=== PATIENT | female | born 1975 | race Caucasian/White ===

== ENCOUNTER → 2016-11-11 | Outpatient (CLI) | payer OTHER ==
[~2016-11-11] MED LIST: PRENTAB26 PO
== END | disposition home or self-care (01) ==
LOC: C.LABSPEC 17:21
PROVIDERS: ATTEND Nurse Practitioner Adult Health
DX: R35.0 Frequency of micturition (principal)

== ENCOUNTER 2017-01-01 10:42 | Emergency (ER) | payer OTHER ==
[~2017-01-01] VITALS: Ht 167.6 cm; Wt 76.3 kg
[2017-01-01 10:55] VITALS: TEMP 36.8; Ht 167.6 cm; Wt 76.3 kg
[2017-01-01 12:29] LABS: BASO % 0.7 %; BASO ABS # 0.04 K/uL (0-0.2); COMPLETE YES; EOS % 1.2 %; HEMATOCRIT 38.5 % (37-47); IG% 0.2 %; LYMPH % 19.8 %; LYMPH ABS # 1.15 K/uL (1.2-3.4); MEAN CELL VOLUME 87.1 fL (80-100); MEAN CORPUSCULAR HEMOGLOBIN 31.2 pg (25-34); MEAN CORPUSCULAR HGB CONC 35.8 g/dl (32-36); MEAN PLATELET VOLUME 9.9 fL (7.4-10.4); MONO % 6.7 %; NEUT % 71.4 %; PLATELET COUNT 236 K/uL (130-400); RED BLOOD COUNT 4.42 M/uL (4.2-5.4); WHITE BLOOD COUNT 5.82 K/uL (4.8-10.8)
[2017-01-01 12:38] LABS: URINE APPEARANCE CLEAR (CLEAR); URINE BILIRUBIN NEG (NEG); URINE COLOR YELLOW; URINE NITRITE NEG (NEG); URINE SPECIFIC GRAVITY 1.009 (1.000-1.030); UROBILINOGEN NEG (NEG); ZZUR CULT IF INDIC CLEAN CATCH NO
[2017-01-01 12:42] LABS: MANUAL MICROSCOPIC REQUIRED? NO; REVIEW REQ? NO
[2017-01-01 12:45] LABS: BUN/CREATININE RATIO 12.5 (10-20); CALCIUM 9.4 mg/dl (8.5-10.1); CREATININE 0.83 mg/dl (0.60-1.20); MAGNESIUM 2.2 mg/dl (1.8-2.4); POTASSIUM 3.7 mmol/L (3.5-5.1)
--- NOTE | 2017-01-01 12:53 | EMERGENCY ROOM VISIT NOTE ---
History Report prepared by Harjinderibsaravanan: Epi Saravia Under the Supervision of: Dr. Angel Tse M.D. First contact with patient: 11:06 Chief Complaint: DIZZY Stated Complaint: LIGHT HEADED, NAUSEA, ARMS FEEL NUMB, CHEST FEELS History of Present Illness The patient is a 41 year old white female who presents to the ED with a cc of an episode of lightheadedness occurring two hours ago. Positive "tunnel vision" visual changes, nausea, diarrhea and bilateral arm numbness. Negative LOC, chest pain, SOB, fevers, chills, or cough. Was shopping when her symptoms began. Her symptoms worsened while present before resolving. Notes that she gave blood during a routine physical this morning. Was required to fast for the blood draw. No known medication allergies. Arm numbness has persisted. No personal history of blood clots. Was previously on control, but no longer takes it. LMNP was four weeks ago. Stressed lately, but not significantly more so than usual. History of one previous panic attack, but states that her current symptoms feel different. Source of History: patient Onset: Two hours ago Quality: other (lightheadedness) Timing: other (episode) Associated Symptoms: + nausea, + diarrhea, + numbness (bilateral arm), No LOC, No fevers, No chills, No cough, No chest pain, No SOB Note: Positive: "tunnel vision" visual changes. Review of Systems See HPI for pertinent positives and negatives. A total of ten systems were reviewed and were otherwise negative. Past Medical & Surgical Medical Problems: (1) No Known Active Medical Problems Family History No pertinent family history stated. Social History Smoking Status: Never Smoker Smokeless Tobacco Use: No Alcohol Use: occasionally Drug Use: none Current/Historical Medications No Active Prescriptions or Reported Meds Allergies Coded Allergies: No Known Allergies (Verified Allergy, Unknown, 04/30/08) Physical Exam Vital Signs Date Time Temp Pulse Resp B/P (MAP) Pulse Ox O2 Delivery O2 Flow Rate FiO2 01/01/17 13:12 78 16 143/92 94 01/01/17 12:30 71 21 117/77 98 Room Air 01/01/17 12:00 74 16 122/83 97 Room Air 01/01/17 11:30 95 21 140/106 99 Room Air 01/01/17 11:16 91 01/01/17 11:05 111 16 132/88 100 Room Air 01/01/17 10:55 36.8 102 18 142/90 99 Room Air Physical Exam GENERAL: Awake, alert, well-appearing, NAD. Tearful, anxious. HENT: Normocephalic, atraumatic. EYES: Normal conjunctiva. Sclera non-icteric. NECK: Supple. No nuchal rigidity. FROM. RESPIRATORY: CTAB, no rhonchi, wheezing, crackles CARDIAC: RRR, no MRG ABDOMEN: Soft, NTND, BS+ MSK: No chest wall TTP, no LE edema NEURO: GCS 15, CN 2-12 intact, moves all 4s on command. No sensory deficit. SKIN: No rash or jaundice noted. Medical Decision & Procedures Laboratory Results 01/01/17 11:50 Red Blood Count 4.42, Mean Corpuscular Volume 87.1, Mean Corpuscular Hemoglobin 31.2, Mean Corpuscular Hemoglobin Concent 35.8, Mean Platelet Volume 9.9, Neutrophils (%) (Auto) 71.4, Lymphocytes (%) (Auto) 19.8, Monocytes (%) (Auto) 6.7, Eosinophils (%) (Auto) 1.2, Basophils (%) (Auto) 0.7, Neutrophils # (Auto) 4.16, Lymphocytes # (Auto) 1.15, Monocytes # (Auto) 0.39, Eosinophils # (Auto) 0.07, Basophils # (Auto) 0.04 01/01/17 11:50 Test 01/01/17 11:50 White Blood Count 5.82 K/uL (4.8-10.8) Red Blood Count 4.42 M/uL (4.2-5.4) Hemoglobin 13.8 g/dL (12.0-16.0) Hematocrit 38.5 % (37-47) Mean Corpuscular Volume 87.1 fL (80-100) Mean Corpuscular Hemoglobin 31.2 pg (25-34) Mean Corpuscular Hemoglobin Concent 35.8 g/dl (32-36) Platelet Count 236 K/uL (130-400) Mean Platelet Volume 9.9 fL (7.4-10.4) Neutrophils (%) (Auto) 71.4 % Lymphocytes (%) (Auto) 19.8 % Monocytes (%) (Auto) 6.7 % Eosinophils (%) (Auto) 1.2 % Basophils (%) (Auto) 0.7 % Neutrophils # (Auto) 4.16 K/uL (1.4-6.5) Lymphocytes # (Auto) 1.15 K/uL (1.2-3.4) Monocytes # (Auto) 0.39 K/uL (0.11-0.59) Eosinophils # (Auto) 0.07 K/uL (0-0.5) Basophils # (Auto) 0.04 K/uL (0-0.2) RDW Standard Deviation 40.1 fL (36.4-46.3) RDW Coefficient of Variation 12.6 % (11.5-14.5) Immature Granulocyte % (Auto) 0.2 % Immature Granulocyte # (Auto) 0.01 K/uL (0.00-0.02) Urine Color YELLOW Urine Appearance CLEAR (CLEAR) Urine pH 7.0 (4.5-7.5) Urine Specific [place] 1.009 (1.000-1.030) Urine Protein NEG (NEG) Urine Glucose (UA) NEG (NEG) Urine Ketones NEG (NEG) Urine Occult Blood NEG (NEG) Urine Nitrite NEG (NEG) Urine Bilirubin NEG (NEG) Urine Urobilinogen NEG (NEG) Urine Leukocyte Esterase NEG (NEG) Urine WBC (Auto) 0 /hpf (0-5) Urine RBC (Auto) 0-4 /hpf (0-4) Urine Hyaline Casts (Auto) 0 /lpf (0-5) Urine Epithelial Cells (Auto) 5-10 /lpf (0-5) Urine Bacteria (Auto) NEG (NEG) Urine Test NEG (NEG) Anion Gap 8.0 mmol/L (3-11) Est Creatinine Clear Calc Drug Dose 94.9 ml/min Estimated GFR () 103.0 Estimated GFR (Non- 88.8 BUN/Creatinine Ratio 12.5 (10-20) Calcium Level 9.4 mg/dl (8.5-10.1) Magnesium Level 2.2 mg/dl (1.8-2.4) Laboratory results reviewed by me ECG Indication: other (lightheadedness) Rate (beats per minute): 86 Rhythm: normal sinus Findings: other (Normal axis. Normal intervals. No STS changes. No TWI. ) ED Course 1124: The patient was evaluated in room B6. A complete history and physical exam was performed. 1255: I reevaluated the patient. Discussed results and discharge instructions: she verbalized understanding and agreement. The patient is ready for discharge. Medical Decision The patient is a 41 year old white female who presents to the ED with a cc of an episode of lightheadedness occurring two hours ago. Differential diagnosis: Etiologies such as benign positional vertigo, dehydration, hypovolemia, anemia, tumor, infection, hypoglycemia, electrolyte abnormalities, cardiac sources, intracerebral event, toxicologic, neurologic, as well as others were entertained. Patient was seen and evaluated. Patient did have some tingling in her hands. Patient did not have any history of early cardiac or unexplained in the family. Patient did not have any episodes of syncope during this visit or prior. Patient does not take any blood thinning medications. Patient did have lab work as well as a urine and EKG completed. His blood work fairly unremarkable exception of trace the elevated blood glucose. Patient's UA negative for infection and urine test were negative. Patient tolerated by mouth. Patient feeling improved. Patient was told to follow-up with her PCP in the hydrate as well as avoid any beverages containing alcohol or caffeine. Patient was given strict follow-up discharge, and return precautions. Patient agrees with plan of care and patient was discharged home. Medication Reconcilliation Current Medication List: was personally reviewed by me Blood Pressure Screening Patient's blood pressure: Elevated blood pressure Blood pressure disposition: Elevated BP felt to be situational Impression Primary Impression: Panic attack Additional Impression: Dehydration Scribe Attestation The scribe's documentation has been prepared under my direction and personally reviewed by me in its entirety. I confirm that the note above accurately reflects all work, treatment, procedures, and medical decision making performed by me. Departure Information Dispostion Home / Self-Care Prescriptions No Active Prescriptions or Reported Meds Referrals No Doctor, Assigned (PCP) Patient Instructions Dehydration, ED Panic Attack, My [facility] Additional Instructions Please return to the emergency department if you have worsening or recurrent symptoms not amenable to at-home treatment. Please call for a follow-up appointment with her primary care physician. Please take your medications as prescribed. If you have other concerns and/or complaints please feel free to also call your primary care physician's office or return the ED for further evaluation, management, and treatment. Problem Qualifiers
[2017-01-01 13:12] VITALS: BP 143/92; PULSE 78; O2SAT 94
== END 2017-01-01 13:10 | disposition home or self-care (01) ==
LOC: C.EDB 10:44
DX: F41.0 Panic disorder [episodic paroxysmal anxiety] (principal); E86.0 Dehydration